=== PATIENT | male | born 1975 | race Caucasian/White ===

== ENCOUNTER 2017-05-15 13:11 | Emergency (ER) | payer BC ==
[~2017-05-15] VITALS: Ht 175.3 cm; Wt 65.9 kg
[2017-05-15 13:14] VITALS: BP 105/71; TEMP 99.4
[2017-05-15] MEDS ORDERED: COREG12.5 MG PO (13:41)
[2017-05-15] MEDS ORDERED: FLEXERIL 1010 MG/TAB PO (14:48)
[2017-05-15 14:59] VITALS: PULSE 89
== END 2017-05-15 14:56 | disposition home or self-care (01) ==
LOC: COL.ER 13:11
DX: M54.2 Cervicalgia (principal); I25.2 Old myocardial infarction; Z87.891 Personal history of nicotine dependence; Z95.810 Presence of automatic (implantable) cardiac defibrillator
CPT/HCPCS: J2360

== ENCOUNTER 2018-03-22 16:50 | Emergency (ER) | payer BC ==
[~2018-03-22] VITALS: Ht 172.7 cm; Wt 66.8 kg
[~2018-03-22 16:50] MED LIST: COREG12.5 MG PO; FLEXERIL 1010 MG/TAB PO
[2018-03-22 17:47] LABS: BASO # 0.1 (0.0-0.2); BASO % 0.4 % (0.0-2.0); EOS # 0.5 (0.0-0.7); EOS % 3.6 % (0-4.0); GRAN # 10.2 (1.4-6.5); GRAN % 69.8 % (42.2-75.2); HEMATOCRIT 44.8 % (42.0-52.0); HEMOGLOBIN 15.4 g/dl (13.5-18.0); LYMPH # 2.6 (1.2-3.4); LYMPH % 17.5 % (20.0-51.0); MEAN CELL VOLUME 90 fl (80.0-100.0); MEAN CORPUSCULAR HEMOGLOBIN 31 pg (27.0-31.0); MEAN CORPUSCULAR HGB CONC 34 g/dl (33.0-37.0); MEAN PLATELET VOLUME 9.7 fl (7.4-10.4); MONO # 1.2 (0.1-0.6); MONO % 8.4 % (1.7-9.3); PLATELET COUNT 380 K/mm3 (130-400); REDCELL DISTRIBUTION WIDTH-CV 12.8 % (11.5-14.5)
[2018-03-22 17:49] LABS: ALBUMIN 4.6 gm/dL (3.5-5.0); BILIRUBIN,TOTAL 0.6 mg/dL (0.0-1.0); CALCIUM 9.9 mg/dL (8.4-10.2); CREATININE, serum 1.03 mg/dL (0.66-1.25); POTASSIUM 4.2 mmol/L (3.4-5.0); TOTAL PROTEIN 8.8 gm/dL (6.4-8.2)
[2018-03-22 18:05] LABS: COLLECTION METHOD CLEAN CATCH
[2018-03-22 18:34] LABS: MUCOUS Present /lpf; PH 5 (5-8); SQUAMOUS EPITHELIAL 0-2 /hpf; URINE APPEARANCE Cloudy; URINE BACTERIA Rare /hpf; URINE BILIRUBIN Negative (NEGATIVE); URINE BLOOD 3+ (NEGATIVE); URINE CALCIUM OXALATE CRYSTAL Present /hpf; URINE COLOR Yellow; URINE GLUCOSE Negative (NEGATIVE); URINE KETONE Trace (NEGATIVE); URINE LEUKOCYTE ESTERASE Negative (NEGATIVE); URINE NITRATE Negative (NEGATIVE); URINE PROTEIN(semi-quant) 2+ (NEGATIVE); URINE RBC 20-50 /hpf; URINE UROBILINOGEN Negative (NEGATIVE)
[2018-03-22] MEDS ORDERED: NORCO 325 MG-51 TAB PO (19:04)
[2018-03-22] MEDS ORDERED: FLOMAX 0.40.4 MG/CAP PO (19:04)
[2018-03-22 20:00] VITALS: BP 120/69; PULSE 72; TEMP 98.1
== END 2018-03-22 20:00 | disposition home or self-care (01) ==
LOC: COL.ER 16:50
PROVIDERS: Emergency Medicine
DX: N20.1 Calculus of ureter (principal); I10 Essential (primary) hypertension; I25.2 Old myocardial infarction; F17.210 Nicotine dependence, cigarettes, uncomplicated
CPT/HCPCS: J1885; J2270; J2405; J7030

== ENCOUNTER 2019-01-06 20:55 | Inpatient (IN) | payer BC ==
[~2019-01-06] VITALS: Ht 172.7 cm; Wt 63.4 kg
[~2019-01-06 20:55] MED LIST changes: +FLOMAX 0.40.4 MG/CAP PO; +NORCO 325 MG-51 TAB PO
[2019-01-06 21:41] LABS: BASO % 0.3 % (0.0-2.0); EOS # 0.3 (0.0-0.7); EOS % 2.6 % (0-4.0); GRAN # 8.3 (1.4-6.5); GRAN % 68.8 % (42.2-75.2); HEMATOCRIT 45.4 % (42.0-52.0); HEMOGLOBIN 15.3 g/dl (13.5-18.0); LYMPH # 2.4 (1.2-3.4); LYMPH % 19.5 % (20.0-51.0); MEAN CELL VOLUME 90 fl (80.0-100.0); MEAN CORPUSCULAR HEMOGLOBIN 30 pg (27.0-31.0); MEAN CORPUSCULAR HGB CONC 34 g/dl (33.0-37.0); MEAN PLATELET VOLUME 9.2 fl (7.4-10.4); MONO % 8.5 % (1.7-9.3); PLATELET COUNT 365 K/mm3 (130-400); RED BLOOD COUNT 5.03 M/mm3 (4.20-5.60)
[2019-01-06 21:49] LABS: ALBUMIN 4.2 gm/dL (3.5-5.0); BILIRUBIN,TOTAL 0.4 mg/dL (0.0-1.0); CALCIUM 9.3 mg/dL (8.4-10.2); CREATININE, serum 0.82 mg/dL (0.66-1.25); POTASSIUM 3.6 mmol/L (3.4-5.0); TOTAL PROTEIN 7.3 gm/dL (6.4-8.2)
[2019-01-06] MEDS ORDERED: ASPIRIN 81M81 MG/TA2 PO (22:09)
[2019-01-06] MEDS ORDERED: ASPIRIN 32325 MG/TAB PO (23:11)
[2019-01-06] MEDS ORDERED: TYLENOL 325MG325 MG PO (23:12)
[2019-01-06] MEDS ORDERED: COREG 25MG25 MG/TAB PO (23:14)
--- NOTE | 2019-01-06 23:30 | NUR ---
Admitted to room 352 from ER- Dx: episode V-tach, sotalol initiation-- No chest pain, no SOB, tele on-SR rate 60-70,s , Up on own to bathroom-
[2019-01-06 23:40] LABS: PROTHROMBIN TIME 11.6 SECONDS (9.7-12.8)
[2019-01-06 23:44] VITALS: BP 105/73; PULSE 85; TEMP 98
[2019-01-07 04:32] VITALS: BP 98/72; PULSE 68
--- NOTE | 2019-01-07 06:04 | NUR ---
Quiet night- tele on SR, denies pain/SOB, understands needs urien specimen today.
[2019-01-07 07:58] LABS: COLLECTION METHOD CLEAN CATCH
[2019-01-07 08:12] LABS: MUCOUS Present /lpf; PH 6 (5-8); SQUAMOUS EPITHELIAL None Seen /hpf; URINE APPEARANCE Clear; URINE BACTERIA None Seen /hpf; URINE BILIRUBIN Negative (NEGATIVE); URINE BLOOD Negative (NEGATIVE); URINE COLOR Yellow; URINE GLUCOSE Negative (NEGATIVE); URINE KETONE Negative (NEGATIVE); URINE LEUKOCYTE ESTERASE Negative (NEGATIVE); URINE NITRATE Negative (NEGATIVE); URINE PROTEIN(semi-quant) Negative (NEGATIVE); URINE RBC 0-2 /hpf; URINE UROBILINOGEN Negative (NEGATIVE)
[2019-01-07 08:21] LABS: TRICYCLIC ANTIDEPRESS URINE NEGATIVE
--- NOTE | 2019-01-07 08:45 | NUR ---
PATIENT ASSESSMENT COMPLETE. HE RETURNS FROM RADIOLOGY. HE DENES PAIN OR OTHER NEEDS
[2019-01-07 09:36] VITALS: BP 103/66; PULSE 71; TEMP 98.9
[2019-01-07 10:49] LABS: BASO % 0.5 % (0.0-2.0); EOS # 0.4 (0.0-0.7); GRAN # 4.4 (1.4-6.5); HEMATOCRIT 43.2 % (42.0-52.0); HEMOGLOBIN 14.4 g/dl (13.5-18.0); LYMPH # 2.3 (1.2-3.4); LYMPH % 28.8 % (20.0-51.0); MEAN CELL VOLUME 92 fl (80.0-100.0); MEAN CORPUSCULAR HEMOGLOBIN 31 pg (27.0-31.0); MEAN CORPUSCULAR HGB CONC 33 g/dl (33.0-37.0); MEAN PLATELET VOLUME 9.9 fl (7.4-10.4); MONO # 0.7 (0.1-0.6); MONO % 9.4 % (1.7-9.3); PLATELET COUNT 375 K/mm3 (130-400); RED BLOOD COUNT 4.71 M/mm3 (4.20-5.60); REDCELL DISTRIBUTION WIDTH-CV 13.1 % (11.5-14.5)
[2019-01-07 11:03] LABS: CALCIUM 9.3 mg/dL (8.4-10.2); CREATININE, serum 0.76 mg/dL (0.66-1.25); MAGNESIUM 2.3 mg/dL (1.6-2.3)
[2019-01-07 11:33] VITALS: BP 104/63; PULSE 60; TEMP 98.6
--- NOTE | 2019-01-07 11:48 | NUR ---
Patient lives at home in his [facility] and plans to return home upon recovery. 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 Eric Holden and also sees Dr. Dalal as needed, his pharmacy is [facility], and he does not have advance directives completed at this time. Patient seeks support from his friend (Jonathan Cunningham) as needed and has no further needs at this time.
--- NOTE | 2019-01-07 15:24 | NUR ---
PATIENT IS RESTING IN BED PLAYING ON HIS PHONE. HE DENIES ANY PAIN OR OTHER NEEDS AT THIS TIME.
[2019-01-07 15:59] VITALS: BP 109/72; PULSE 63; TEMP 99.1
[2019-01-07 19:15] VITALS: BP 109/67; PULSE 63; TEMP 98.4
--- NOTE | 2019-01-07 19:59 | NUR ---
Assessment complete.patient awake,a/ox3.breathing even and unlabored.denies chest pain.VSS.continues on sotalol.QTc 489.all meds given.patient to have Lexiscan in the morning.education provided on NPO at midnight.pt voice understanding.no needs voiced at this time.will continue to monitor.call light in reach
[2019-01-07 23:45] VITALS: BP 109/57; PULSE 60; TEMP 97.4
[2019-01-08] VITALS (12 sets, daily range): BP systolic 100–120; BP diastolic 53–76; PULSE 59–91; TEMP 97.9–989.8
[2019-01-08 07:48] LABS: BASO % 0.5 % (0.0-2.0); EOS # 0.4 (0.0-0.7); EOS % 4.5 % (0-4.0); GRAN # 4.4 (1.4-6.5); GRAN % 56.5 % (42.2-75.2); HEMATOCRIT 44.9 % (42.0-52.0); HEMOGLOBIN 14.6 g/dl (13.5-18.0); LYMPH # 2.3 (1.2-3.4); LYMPH % 29.7 % (20.0-51.0); MEAN CELL VOLUME 93 fl (80.0-100.0); MEAN CORPUSCULAR HEMOGLOBIN 30 pg (27.0-31.0); MEAN CORPUSCULAR HGB CONC 33 g/dl (33.0-37.0); MEAN PLATELET VOLUME 9.7 fl (7.4-10.4); MONO # 0.7 (0.1-0.6); MONO % 8.5 % (1.7-9.3); PLATELET COUNT 350 K/mm3 (130-400); RED BLOOD COUNT 4.81 M/mm3 (4.20-5.60); REDCELL DISTRIBUTION WIDTH-CV 13.2 % (11.5-14.5)
[2019-01-08 07:53] LABS: CALCIUM 8.9 mg/dL (8.4-10.2); CREATININE, serum 0.99 mg/dL (0.66-1.25); MAGNESIUM 2.3 mg/dL (1.6-2.3); POTASSIUM 4.4 mmol/L (3.4-5.0)
--- NOTE | 2019-01-08 08:54 | NUR ---
Assessment completed, alert/oriented, vital signs stable, denies any chest pain or discomfort, heart RRR/ Sinus on tele, distal pulses are palpable, lungs CTA/ no resp.difficulty, scheduled for Lexiscan this morning and is currently off the floor in Nuc. med for the test, he has been NPO, will give morning meds when patient arrives back to the floor, denies othe needs this morning
--- NOTE | 2019-01-08 11:59 | NUR ---
Initial visit; Patient thanked Lubrication Technician for stopping by and introducing herself, letting him know of the availability of spiritual care.
[2019-01-09 00:30] VITALS: BP 99/61; PULSE 63; TEMP 98
--- NOTE | 2019-01-09 04:42 | NUR ---
PT HAD UNEVENTFUL NOC. ONLY CONSERN VOICED WAS THAT HE WAS READY TO GO HOME. STATED TIRED OF BEING POKED AND PRODED. NO C/O PAIN. NO CHEST PAIN OR NOTED PALPATIONS THIS SHIFT.
[2019-01-09 04:50] VITALS: BP 101/63; PULSE 59; TEMP 97.7
[2019-01-09 07:22] LABS: BASO # 0.1 (0.0-0.2); BASO % 0.7 % (0.0-2.0); EOS # 0.5 (0.0-0.7); EOS % 5.4 % (0-4.0); GRAN # 4.8 (1.4-6.5); HEMATOCRIT 46.3 % (42.0-52.0); HEMOGLOBIN 15.3 g/dl (13.5-18.0); LYMPH # 2.9 (1.2-3.4); LYMPH % 31.9 % (20.0-51.0); MEAN CELL VOLUME 91 fl (80.0-100.0); MEAN CORPUSCULAR HEMOGLOBIN 30 pg (27.0-31.0); MEAN CORPUSCULAR HGB CONC 33 g/dl (33.0-37.0); MEAN PLATELET VOLUME 9.6 fl (7.4-10.4); MONO # 0.8 (0.1-0.6); MONO % 8.6 % (1.7-9.3); PLATELET COUNT 358 K/mm3 (130-400); RED BLOOD COUNT 5.07 M/mm3 (4.20-5.60)
[2019-01-09 07:31] LABS: CALCIUM 9.3 mg/dL (8.4-10.2); CREATININE, serum 0.95 mg/dL (0.66-1.25); MAGNESIUM 2.3 mg/dL (1.6-2.3); POTASSIUM 4.4 mmol/L (3.4-5.0)
[2019-01-09 08:14] VITALS: BP 115/68; PULSE 60; TEMP 98.2
--- NOTE | 2019-01-09 08:39 | NUR ---
Asssessment completed, alert/oriented, vital signs stable, denies chest pain or discomfort, heart RRR/distal pulses are palpable, no changes on Tele through the night, day#3 sotalol, patient reports some off and on "fuzziness" in his head ever sence stress test yesterday/ but denies feeling ligheheaded or dizzy, dnies other needs at [facility] and is hoping to go home
[2019-01-09] MEDS ORDERED: BETAPACE 80MG80 MG PO (10:39)
--- NOTE | 2019-01-09 11:52 | NUR ---
discharge instructions reviewed with the patient, instructed to follow up with PCP and Cardiology as we have scheduled, instructed to take Sotalol and prescribed/ script sent to [facility] pharmacy for him, instructed to stop his Coreg and to conitue ASA, removed his IV and Tele, he is ambulatory and I personally escorted him out the door
== END 2019-01-09 11:53 | disposition home or self-care (01) | DRG 310 ==
LOC: COL.ER 20:55 → MEDICAL 22:22 → COL.ER 22:22 → MEDICAL 22:22
PROVIDERS: Emergency Medicine; ADMIT Internal Medicine
DX: I47.2 Ventricular tachycardia (principal); R55 Syncope and collapse; Z72.0 Tobacco use; D72.829 Elevated white blood cell count, unspecified; Z95.810 Presence of automatic (implantable) cardiac defibrillator; Z88.1 Allergy status to other antibiotic agents; R50.9 Fever, unspecified
CPT/HCPCS: 99223-AI; 99231-AI; 99232-AI; 99239; A9500; J1644; J2785

== ENCOUNTER 2019-09-23 07:38 | Emergency (ER) | payer BC ==
[~2019-09-23] VITALS: Ht 20.3 cm; Wt 65.9 kg
[~2019-09-23 07:38] MED LIST changes: +ASPIRIN 32325 MG/TAB PO; +ASPIRIN 81M81 MG/TA2 PO; +BETAPACE 80MG80 MG PO; +COREG 25MG25 MG/TAB PO; +TYLENOL 325MG325 MG PO
[2019-09-23 07:43] VITALS: BP 125/92; PULSE 67; TEMP 97.4
[2019-09-23] MEDS ORDERED: EXCEDRIN1 TAB PO (08:03)
[2019-09-23] MEDS ORDERED: ALEVE 220MG220 MG PO (08:04)
[2019-09-23 08:15] LABS: BASO % 0.5 % (0.0-2.0); EOS # 0.3 (0.0-0.7); EOS % 4.5 % (0-4.0); GRAN # 4.8 (1.4-6.5); GRAN % 62.5 % (42.2-75.2); HEMATOCRIT 44.9 % (42.0-52.0); HEMOGLOBIN 14.7 g/dl (13.5-18.0); LYMPH # 1.7 (1.2-3.4); LYMPH % 21.7 % (20.0-51.0); MEAN CELL VOLUME 94 fl (80.0-100.0); MEAN CORPUSCULAR HEMOGLOBIN 31 pg (27.0-31.0); MEAN CORPUSCULAR HGB CONC 33 g/dl (33.0-37.0); MEAN PLATELET VOLUME 9.7 fl (7.4-10.4); MONO # 0.8 (0.1-0.6); MONO % 10.4 % (1.7-9.3); PLATELET COUNT 342 K/mm3 (130-400); REDCELL DISTRIBUTION WIDTH-CV 12.6 % (11.5-14.5)
[2019-09-23 08:16] LABS: INR 0.9 (0.8-3.0); PROTHROMBIN TIME 10.4 SECONDS (9.7-12.8)
[2019-09-23 08:23] LABS: ALANINE AMINOTRANSFERASE 17 U/L (21-72); ALBUMIN 4.3 gm/dL (3.5-5.0); ALKALINE PHOSPHATASE 67 U/L (50-136); ANION GAP 6 mmol/L (7-16); AST,SGOT 19 U/L (15-37); BILIRUBIN,TOTAL 0.3 mg/dL (0.0-1.0); BLOOD UREA NITROGEN 22 mg/dL (9-20); CARBON DIOXIDE 29 mmol/L (22-30); CHLORIDE 106 mmol/L (98-107); CREATINE KINASE 75 U/L (55-170); CREATININE, serum 0.88 (0.66-1.25); GLUCOSE 105 mg/dL (74-106); MAGNESIUM 2.3 mg/dL (1.6-2.3); POTASSIUM 4.3 mmol/L (3.4-5.0); SODIUM 141 mmol/L (137-145); TOTAL PROTEIN 7.3 gm/dL (6.4-8.2)
[2019-09-23 08:34] LABS: TROPONIN-I < 0.012 ng/mL (0.000-0.035)
== END 2019-09-23 09:50 | disposition home or self-care (01) ==
LOC: COL.ER 07:38
PROVIDERS: Emergency Medicine
DX: T82.897A Other specified complication of cardiac prosthetic devices, implants and grafts, initial encounter (principal); F17.210 Nicotine dependence, cigarettes, uncomplicated; Z79.82 Long term (current) use of aspirin

== ENCOUNTER 2022-03-02 10:28 | Emergency (ER) | payer BC ==
[~2022-03-02] VITALS: Ht 175.3 cm; Wt 75.0 kg
[~2022-03-02 10:28] MED LIST changes: +ALEVE 220MG220 MG PO; +EXCEDRIN1 TAB PO
[2022-03-02 10:51] VITALS: TEMP 97.7
[2022-03-02 11:08] LABS: BASO # 0.1 K/mm3 (0.0-0.2); BASO % 0.6 % (0.0-2.0); EOS # 0.4 K/mm3 (0.0-0.7); EOS % 4.3 % (0.0-4.0); GRAN % 52.7 % (42.2-75.2); HEMATOCRIT 47.4 % (42.0-52.0); HEMOGLOBIN 16.3 g/dl (13.5-18.0); LYMPH # 3.2 K/mm3 (1.2-3.4); LYMPH % 34.1 % (20.0-51.0); MEAN CELL VOLUME 88 fl (80.0-100.0); MEAN CORPUSCULAR HEMOGLOBIN 30 pg (27-31); MEAN CORPUSCULAR HGB CONC 34 g/dl (33.0-37.0); MEAN PLATELET VOLUME 9.5 fl (7.4-10.4); MONO # 0.8 K/mm3 (0.1-0.6); PLATELET COUNT 442 K/mm3 (130-400); RED BLOOD COUNT 5.38 M/mm3 (4.20-5.60); REDCELL DISTRIBUTION WIDTH-CV 12.2 % (11.5-14.5)
[2022-03-02 11:29] LABS: ALBUMIN 4.4 gm/dL (3.5-5.0); BILIRUBIN,TOTAL 0.5 mg/dL (0.2-1.2); CALCIUM 9.9 mg/dL (8.4-10.2); CREATININE, serum 1.06 mg/dL (0.72-1.25); POTASSIUM 4.6 mmol/L (3.5-4.5); TOTAL PROTEIN 7.9 gm/dL (6.2-8.1)
[2022-03-02 11:39] LABS: COLLECTION METHOD CLEAN CATCH
[2022-03-02 11:52] LABS: MUCOUS Present (NOT PRESENT); PH 6 (5-8); SQUAMOUS EPITHELIAL None Seen /hpf (0-10); URINE APPEARANCE Hazy (CLEAR/HAZY); URINE BACTERIA Rare /hpf (NONE SEEN); URINE BILIRUBIN Negative (NEGATIVE); URINE BLOOD 3+ (NEGATIVE); URINE COLOR Yellow (YELLOW); URINE GLUCOSE Negative (NEGATIVE); URINE KETONE Negative (NEGATIVE); URINE LEUKOCYTE ESTERASE Negative (NEGATIVE); URINE NITRATE Negative (NEGATIVE); URINE PROTEIN(semi-quant) 1+ (NEGATIVE); URINE RBC >50 /hpf (0-2); URINE UROBILINOGEN Negative (NEGATIVE)
[2022-03-02] MEDS ORDERED: ZOFRAN ODT4 MG PO (15:02)
[2022-03-02] MEDS ORDERED: NORCO 325 MG-51 TAB PO (15:02)
[2022-03-02] MEDS ORDERED: FLOMAX 0.40.4 MG/CAP PO (15:02)
[2022-03-02 15:15] VITALS: BP 106/70; PULSE 68
== END 2022-03-02 15:17 | disposition home or self-care (01) ==
LOC: COL.ER 10:28
PROVIDERS: Nurse Practitioner Primary Care
DX: N20.1 Calculus of ureter (principal); F17.290 Nicotine dependence, other tobacco product, uncomplicated; Z87.442 Personal history of urinary calculi; Z28.310 Unvaccinated for COVID-19
CPT/HCPCS: J1885; J2270; J2405; J7030; Q9967

== ENCOUNTER 2023-01-06 08:20 | Emergency (ER) | payer BC ==
[~2023-01-06] VITALS: Ht 172.7 cm; Wt 78.6 kg
[~2023-01-06 08:20] MED LIST changes: +ZOFRAN ODT4 MG PO
[2023-01-06 09:16] LABS: BASO # 0.1 K/mm3 (0.0-0.2); BASO % 0.9 % (0.0-2.0); EOS # 0.3 K/mm3 (0.0-0.7); GRAN # 4.4 K/mm3 (1.4-6.5); GRAN % 64.8 % (42.2-75.2); HEMATOCRIT 47.8 % (42.0-52.0); HEMOGLOBIN 16.3 g/dl (13.5-18.0); LYMPH # 1.5 K/mm3 (1.2-3.4); LYMPH % 21.9 % (20.0-51.0); MEAN CELL VOLUME 89 fl (80.0-100.0); MEAN CORPUSCULAR HEMOGLOBIN 30 pg (27-31); MEAN CORPUSCULAR HGB CONC 34 g/dl (33.0-37.0); MEAN PLATELET VOLUME 9.1 fl (7.4-10.4); MONO # 0.6 K/mm3 (0.1-0.6); MONO % 8.1 % (1.7-9.3); PLATELET COUNT 443 K/mm3 (130-400); REDCELL DISTRIBUTION WIDTH-CV 12.7 % (11.5-14.5)
[2023-01-06 09:29] LABS: ALANINE AMINOTRANSFERASE 22 U/L (0-55); ALBUMIN 4.2 gm/dL (3.5-5.0); ALKALINE PHOSPHATASE 63 U/L (40-150); ANION GAP 11 mmol/L (7-16); AST,SGOT 17 U/L (5-34); BILIRUBIN,TOTAL 0.4 mg/dL (0.2-1.2); BLOOD UREA NITROGEN 13 mg/dL (9-21); CALCIUM 9.9 mg/dL (8.4-10.2); CARBON DIOXIDE 22 mmol/L (22-29); CHLORIDE 105 mmol/L (98-107); CREATININE, serum 0.88 mg/dL (0.72-1.25); GLUCOSE 112 mg/dL (70-99); POTASSIUM 4.6 mmol/L (3.5-4.5); SODIUM 138 mmol/L (136-145); TOTAL PROTEIN 7.9 gm/dL (6.2-8.1)
[2023-01-06 09:39] LABS: TROPONIN-I < 0.010 ng/mL (0.00-0.033)
[2023-01-06 09:53] VITALS: BP 126/90; PULSE 61; TEMP 98.6
== END 2023-01-06 10:06 | disposition home or self-care (01) ==
LOC: COL.ER 08:20
PROVIDERS: Emergency Medicine
DX: R03.0 Elevated blood-pressure reading, without diagnosis of hypertension (principal); I47.20 Ventricular tachycardia, unspecified; Z79.899 Other long term (current) drug therapy
CPT/HCPCS: J7030